=== PATIENT | female | born 1995 | race American Indian/Alaskan Native ===

== ENCOUNTER 2017-03-15 14:31 | Emergency (ER) | payer SELFPAY | END 2017-03-15 14:32 | disposition left against medical advice (07) | LOC: ED 14:31 | DX: R10.9 Unspecified abdominal pain (principal); Z53.21 Procedure and treatment not carried out due to patient leaving prior to being seen by health care provider ==

== ENCOUNTER 2017-08-19 01:18 | Outpatient (CLI) | payer MEDICAID ==
[2017-08-19 01:37] VITALS: BP 114/77
[2017-08-19] MEDS ORDERED: LACTATED RINGERS 500 ML IV ONE (01:57)
[2017-08-19 03:42] LABS: Bacteria,Urine 1+ /HPF (Negative); Bilirubin,Urine NEG (Negative); Blood,Urine NEG (Negative); Color,Urine Yellow (Yellow); Mucus,Urine FEW /HPF; Protein,Urine <15 mg/dL mg/dL (Negative); Urobilinogen,Urine < 2.0 mg/dL (<2.0)
[2017-08-19] MEDS ORDERED: BRETHINE SUB-Q ONE (04:13)
== END 2017-08-19 05:18 | disposition home or self-care (01) ==
LOC: TRG 01:18
PROVIDERS: ATTEND Obstetrics & Gynecology
DX: O62.9 Abnormality of forces of labor, unspecified (principal); O26.893 Other specified pregnancy related conditions, third trimester; M54.9 Dorsalgia, unspecified; Z3A.32 32 weeks gestation of pregnancy
CPT/HCPCS: 36415; 59025; 81001; 82731; 96360; 96372; J3105; J7120

== ENCOUNTER 2017-09-07 23:02 | Outpatient (CLI) | payer MEDICAID ==
[2017-09-07 23:32] VITALS: BP 120/76
--- NOTE | 2017-09-08 09:05 | Ultrasound Report ---
FINAL REPORT EXAM: US OB BPP WO NON-STRESS HISTORY: Low Fluid TECHNIQUE: Sonographic biophysical profile performed PRIORS: None. FINDINGS: There is a single live intrauterine of approximately 35 weeks 1 day according to the provided KARISSA of 10/11/2017. position is cephalic. Placenta is anterior. Amniotic fluid volume is normal with ALEX of 13.2 cm. cardiac activity is measured at 150 bpm. biophysical profile: breathing movements: 2 Gross body movements: 2 tone: 2 Amniotic fluid volume: 2 Score: 8 out of 8. IMPRESSION: Normal biophysical profile scoring 8 out of 8
--- NOTE | 2017-09-08 09:07 | Ultrasound Report ---
FINAL REPORT EXAM: US OB LIMITED HISTORY: Low Fluid TECHNIQUE: Limited obstetrical ultrasound performed to evaluate amniotic fluid. PRIORS: None. FINDINGS: There is a single live intrauterine of approximately 35 weeks 1 day according to KRAISSA of 10/11/2017. Measurements were not obtained. position is cephalic. The placenta is anterior. The amniotic fluid volume is normal. Amniotic fluid index is 13.2 cm. cardiac activity seen, measured at 150 beats per minute. Cervix is not discretely visualized. IMPRESSION: Single live 3rd trimester intrauterine . Amniotic fluid volume is normal with ALEX of 13.2 cm.
== END 2017-09-08 02:24 | disposition home or self-care (01) ==
LOC: TRG 23:02
PROVIDERS: ATTEND Obstetrics & Gynecology
DX: O47.03 False labor before 37 completed weeks of gestation, third trimester (principal); Z3A.35 35 weeks gestation of pregnancy
CPT/HCPCS: 59025; 76815; 76819

== ENCOUNTER 2017-10-12 10:23 | Outpatient (CLI) | payer MEDICAID ==
[2017-10-12] MEDS ORDERED: VISTARIL PO ONE (13:00)
== END 2017-10-12 13:10 | disposition home or self-care (01) ==
LOC: TRG 10:23 → LD 10:24 → TRG 11:07
PROVIDERS: ATTEND Obstetrics & Gynecology
DX: O47.1 False labor at or after 37 completed weeks of gestation (principal); Z3A.40 40 weeks gestation of pregnancy
CPT/HCPCS: 59025; Q0177

== ENCOUNTER 2017-10-12 18:01 | Inpatient (IN) | payer MEDICAID ==
[2017-10-12] MEDS ORDERED: STADOL IV PRN (18:41)
[2017-10-12] MEDS ORDERED: BRETHINE SUB-Q PRN (18:41)
[2017-10-12] MEDS ORDERED: NUBAIN IV PRN (18:41)
[2017-10-12] MEDS ORDERED: NARCAN 0.4 MG/1 ML IV PRN (18:41)
[2017-10-12] MEDS ORDERED: ePHEDrine SULFATE IV PRN ×2 (18:41→20:26)
[2017-10-12] MEDS ORDERED: XYLOCAINE 2% INFILTRATI ONE (18:41)
[2017-10-12] MEDS ORDERED: PHENERGAN PO PRN ×2 (18:41→21:57)
[2017-10-12] MEDS ORDERED: SUBLIMAZE IV PRN (18:41)
[2017-10-12] MEDS ORDERED: MINERAL OIL PO PRN (18:41)
[2017-10-12] MEDS ORDERED: BRETHINE IVP PRN (18:41)
[2017-10-12] MEDS ORDERED: ZOFRAN IV PRN ×2 (18:41→21:57)
--- NOTE | 2017-10-12 18:48 | History and Physical Report ---
History of Present Illness Date of examination: 10/12/17 Date of admission: 10/12/17 18:27 Chief complaint: contractions History of present illness: This is a 22 yo at 40 +0 weeks came in after being here this am and noted to be 1 cm. She was discharrged home and came back noted to be 6/c/-1 station. she was admitted to labor and delivery. She is a patient of [facility]. She had her first visit at 6 weeks. Her OB care consisted of constipation, back pain and cardiology -echo normal . Past History Past Medical History: no pertinent history Past Surgical History: no surgical history Family/Genetic History: none Social history: no significant social history, single. denies: smoking, alcohol abuse, prescription drug abuse - Obstetrical History Expected Date of Delivery: 10/11/17 Actual Gestation: 40 Week(s) 1 Day(s) : 1 Para: 0 Hx # Term Pregnancies: 0 Number of Pregnancies: 0 Spontaneous Abortions: 0 Induced : 0 Medications and Allergies Allergies Allergy/AdvReac Type Severity Reaction Status Date / Time No Known Allergies Allergy Verified 08/19/17 02:00 Review of Systems All systems: negative Genitourinary: contractions - Physical Exam Breasts: Positive: deferred Cardiovascular: Regular rate, Normal S1 Lungs: Positive: Clear to auscultation, Normal air movement Abdomen: Positive: normal appearance, soft, normal bowel sounds. Negative: distention, tenderness, guarding Genitourinary (Female): Positive: normal external genitalia, normal perenium Vulva: both: normal Vagina: Positive: normal moisture Cervix: Negative: lesion Uterus: Positive: normal size Anus/Rectum: Positive: normal perianal skin Extremities: Positive: normal Deep Tendon Reflex Grade: Normal +2 - Obstetrical FHR: category 1 Uterine Contraction Monitor Mode: Palpation Cervical Dilatation: 7 Cervical Effacement Percentage: 100 station: 0 Uterine Contraction Pattern: Regular Uterine Tone Measurement Phase: Contraction Uterine Contraction Intensity: Moderate Results All other labs normal. Assessment and Plan A/P IUP 40 weeks Active labor GBS neg offer epidural consider pitocin and arom expect vaginal delivery
[2017-10-12] MEDS ORDERED: PITOCin/NS 20 UNIT/1000ML DRIP 20 UNITS/1,000 ML BAG IV SCH ×2 (19:00→22:00)
[2017-10-12] MEDS ORDERED: LACTATED RINGERS 1,000 ML IV SCH (19:00)
[2017-10-12] MEDS ORDERED: PITOCin/NS 30 UNIT/500ML 30 UNITS/500 ML BAG IV SCH ×2 (19:00)
[2017-10-12 19:56] LABS: Hematocrit 35.7 % (30.3-42.9); Hemoglobin 11.1 gm/dl (10.1-14.3); Mean Corpuscular HGB Conc 31 % (30-34); Mean Corpuscular Hemoglobin 26 pg (28-32); Mean Corpuscular Volume 83 fl (79-97); Platelet Count 167 K/mm3 (140-440); Red Blood Count 4.31 M/mm3 (3.65-5.03); Red Cell Distribution Width 15.6 % (13.2-15.2)
[2017-10-12] MEDS ORDERED: NARCAN 2 MG/2 ML IV PRN (20:26)
[2017-10-12] MEDS ORDERED: fentaNYL-BUPIV 2 MCG/ML-0.125% 200 MCG/100 ML BAG EPIDURAL SCH (21:00)
[2017-10-12] MEDS ORDERED: PERCOCET 5/325 PO PRN (21:57)
[2017-10-12] MEDS ORDERED: TORADOL IV PRN (21:57)
[2017-10-12] MEDS ORDERED: DULCOLAX PR PRN (21:57)
[2017-10-12] MEDS ORDERED: BENADRYL PO PRN (21:57)
[2017-10-12] MEDS ORDERED: MILK OF MAGNESIA PO PRN (21:57)
[2017-10-12] MEDS ORDERED: LANSINOH TP PRN (21:57)
[2017-10-12] MEDS ORDERED: TUCKS PAD TP PRN (21:57)
[2017-10-12] MEDS ORDERED: TYLENOL PO PRN (21:57)
[2017-10-12] MEDS ORDERED: PHENERGAN PR PRN (21:57)
[2017-10-12] MEDS ORDERED: SENOKOT S PO SCH (22:00)
[2017-10-12] MEDS ORDERED: SODIUM CHLORIDE FLUSH SYRINGE 10 ML IV PRN (22:00)
--- NOTE | 2017-10-12 22:05 | Procedure Note ---
OB Delivery Note - Delivery Date of Delivery: 10/12/17 Surgeon: PIPPA POWERS Estimated blood loss: other (350cc) - Vaginal Delivery presentation: vertex Delivery position: OA Delivery induction: none Delivery monitor: none Route of delivery: Delivery placenta: spontaneous Delivery cord: 3 umbilical vessels Episiotomy: none Delivery laceration: 1st degree Delivery repair: vicryl Anesthesia: epidural Delivery comments: Patient was noted to be c/c/+1 and commenced to pushing a viable female infant with Apgars 8 and 9. The weight of the baby 6 pounds 7 ounces in OA presentation. The shoulders delivered easily. The nasopharynx and oropharynxed suctioned. The baby was born at 2145. The cord was left to pulsate for 45 sec and clamped and cut. The placenta delivered intact with 3 vessel cord at 2148. Survey of perineum revealed a 1st degree lac repaired with 2-0 vicryl. All laps and needle counts correct x3. Patient tolerated procedure well. - Infant A at 1 minute: 8 at 5 minutes: 9 Gender: Female
[2017-10-13] MEDS: MOTRIN PO SCH ×3 (03:39→20:40)
[2017-10-13 11:19] LABS: Hematocrit 30.1 % (30.3-42.9); Hemoglobin 9.5 gm/dl (10.1-14.3)
[2017-10-13] MEDS: PRENATAL VITAMIN PO SCH (12:05)
[2017-10-13] MEDS: COLACE PO SCH ×2 (12:06→20:43)
[2017-10-13] MEDS: NORCO 5/325 PO PRN (20:42)
--- NOTE | 2017-10-13 21:06 | Progress Note ---
Assessment and Plan A: PPD#1 s/p at term, Asymptomatic anemia P: Routine care. Anticipate discharge tomorrow. Subjective - Subjective Date of service: 10/13/17 Principal diagnosis: s/p at term Interval history: Late entry. No overnight events. Patient reports: appetite normal, voiding normally, pain well controlled : doing well Objective - Vital Signs Latest vital signs: Vital Signs Temp Pulse Resp BP BP Pulse Ox 10/13/17 20:42 20 10/13/17 20:40 20 10/13/17 17:35 98.8 F 103 H 18 109/73 10/13/17 09:45 97.8 F 104 H 18 111/59 10/13/17 04:05 98.2 F 100 H 18 96/50 10/13/17 00:20 99.4 F 95 H 20 121/76 10/12/17 23:31 111 H 100 10/12/17 23:26 99 H 100 10/12/17 23:18 90 117/73 10/12/17 23:03 75 114/74 10/12/17 22:48 88 119/79 10/12/17 22:33 111 H 119/79 10/12/17 22:31 111 H 100 10/12/17 22:26 120 H 99 10/12/17 22:21 109 H 100 10/12/17 22:08 106 H 100 10/12/17 22:06 120 H 104/60 10/12/17 22:05 99.4 F 20 10/12/17 22:02 115 H 100 10/12/17 21:57 125 H 100 10/12/17 21:52 111 H 100 10/12/17 21:47 142 H 100 10/12/17 21:42 141 H 100 10/12/17 21:37 99 H 100 10/12/17 21:34 103 H 107/58 10/12/17 21:32 111 H 100 10/12/17 21:27 127 H 100 10/12/17 21:22 132 H 100 10/12/17 21:17 125 H 100 10/12/17 21:12 121 H 100 10/12/17 21:07 132 H 100 Intake and Output 10/13/17 10/13/17 10/13/17 06:59 14:59 22:59 Intake Total 480 360 360 Output Total 500 Balance -20 360 360 Intake: Oral 480 360 360 Output: Urine 500 Void 500 Other: Total, Intake Amount 240 360 360 Total, Output Amount 500 # Voids Void 1 1 1 - Exam Breasts: Present: deferred Cardiovascular: Present: Regular rate Lungs: Present: Clear to auscultation Abdomen: Present: soft Extremities: Present: normal - Labs Labs: Abnormal lab results 10/13/17 Range/Units 10:06 Hgb 9.5 L (10.1-14.3) gm/dl Hct 30.1 L (30.3-42.9) %
--- NOTE | 2017-10-13 21:08 | Discharge Summary ---
Providers - Providers Date of Admission: 10/12/17 18:27 Date of discharge: 10/14/17 Attending physician: PIPPA POWERS MD Primary care physician: PIPPA POWERS MD Hospitalization Reason for admission: active labor Delivery: Procedure details: Please see delivery note. Episiotomy: none Laceration: 1st degree Other procedures: none complications: none Discharge diagnosis: IUP at term delivered baby: female Hospital course: Pt was admitted in active labor and went on to have a spontaneous vaginal delivery which she tolerated well. Her course was uncomplicated and she met discharge criteria on PPD#2. Condition at discharge: Stable Disposition: DC-01 TO HOME OR SELFCARE - Discharge Diagnoses (1) Term of female Status: Acute (2) Anemia Status: Acute Qualifiers: Anemia type: unspecified type Qualified Code(s): D64.9 - Anemia, unspecified Plan - Discharge Medications Prescriptions: Ferrous Sulfate [Feosol 325 MG tab] 325 mg PO BID #60 tablet HYDROcodone/APAP 5-325 [[place] 5/325] 1 each PO Q6HR PRN #20 tablet PRN Reason: Pain Ibuprofen [Motrin] 800 mg PO Q8HR PRN #30 tablet PRN Reason: Pain, Moderate (4-6) - Provider Discharge Summary Activity: routine, no sex for 6 weeks, no heavy lifting 4 weeks, no strenuous exercise Diet: routine Instructions: routine Additional instructions: [] Smoking cessation referral if applicable(refer to patient education folder for contact #) [] Refer to [facility]'s [facility] Booklet Call your doctor immediately for: * Fever > 100.5 * Heavy vaginal bleeding ( >1 pad per hour) * Severe persistent headache * Shortness of breath * Reddened, hot, painful area to leg or breast * Drainage or odor from incision. * Keep incision clean and dry at all times and follow doctor's instructions regarding bathing/showering - Follow up plan Follow up: PIPPA POWERS MD [Primary Care Provider] - 7 Days
[2017-10-13] MEDS ORDERED: M-M-R II VACCINE SUB-Q ONE (21:57)
[2017-10-14] MEDS: MOTRIN PO SCH ×2 (05:55→12:00)
[2017-10-14] MEDS ORDERED: BOOSTRIX IM ONE (06:00)
[2017-10-14] MEDS: NORCO 5/325 PO PRN (11:10)
[2017-10-14] MEDS: PRENATAL VITAMIN PO SCH (11:10)
[2017-10-14] MEDS: COLACE PO SCH (11:10)
[2017-10-14 15:44] VITALS: BP 120/78
== END 2017-10-14 15:00 | disposition home or self-care (01) | DRG 775 ==
LOC: TRG 18:01 → LD 18:27 → OB 10-13 00:15
PROVIDERS: ADMIT Obstetrics & Gynecology; ATTEND Obstetrics & Gynecology
PROC: 10E0XZZ Delivery of Products of Conception, External Approach (ICD-10-PCS; principal; 2017-10-12)
PROC: 0HQ9XZZ Repair Perineum Skin, External Approach (ICD-10-PCS; 2017-10-12)
PROC: 3E0R3BZ Introduction of Anesthetic Agent into Spinal Canal, Percutaneous Approach (ICD-10-PCS; 2017-10-12)
PROC: 00HU33Z Insertion of Infusion Device into Spinal Canal, Percutaneous Approach (ICD-10-PCS; 2017-10-12)
DX: O70.0 First degree perineal laceration during delivery (principal); O90.81 Anemia of the puerperium; D64.9 Anemia, unspecified; Z3A.40 40 weeks gestation of pregnancy; Z37.0 Single live birth
CPT/HCPCS: 36415; 59025; 85014; 85018; 85027; 86592; 86850; 86900; 86901; 99211; A6250; G0463; J2590; J3010; J7120